=== PATIENT | male | born 1985 | race Hispanic/Latino ===

== ENCOUNTER 2017-12-15 12:24 | Emergency (ER) | payer SELFPAY ==
[2017-12-15 13:19] LABS: Absolute Lymphocytes (CBC) 2.5 K/uL (0.7-4.9); Absolute Monocytes 0.5 K/uL (0.1-1.3); Absolute Neutrophil 5.9 K/uL (1.8-8.0); Basophils % 0.4 % (0-1.3); Eosinophils % 0.7 % (0-4.4); Hematocrit 43.2 % (39.6-49.0); MCH 30.8 pg (27.0-35.0); MCV 87.9 fL (80-100); MPV 9.4 fL (7.6-11.3); RBC Red Blood Cell Count 4.91 M/uL (4.33-5.43)
[2017-12-15 13:29] LABS: Protime INR 1.01
[2017-12-15 13:44] LABS: ALT/SGPT 34 U/L (12-78); AST/SGOT 23 U/L (15-37); Albumin 4.2 g/dL (3.4-5.0); Alkaline Phosphatase 69 U/L (45-117); BUN Blood Urea Nitrogen 10 mg/dL (7-18); Bicarbonate 27 mmol/L (21-32); Bilirubin Direct 0.1 mg/dL (0-0.2); Bilirubin Total 0.5 mg/dL (0.2-1.0); Glucose Level 95 mg/dL (74-106); Magnesium 2.1 mg/dL (1.8-2.4); NT PRO-BNP 41 pg/mL (<125); Potassium 3.2 mmol/L (3.5-5.1); Sodium Level 139 mmol/L (136-145); Troponin (Emerg Dept Use Only) < 0.02 ng/mL (0.0-0.045)
--- NOTE | 2017-12-15 13:44 | RAD REPORT ---
EXAM DESCRIPTION: RAD - Chest Pa And Lat (2 Views) - 12/15/2017 1:39 pm CLINICAL HISTORY: CHEST PAIN Chest pain. COMPARISON: CHEST PA AND LAT 2 VIEW dated 05/27/2007; CHEST PA AND LAT 2 VIEW dated 01/09/2006 FINDINGS: The lungs are clear. The heart is normal in size. No displaced fractures. IMPRESSION: No acute or concerning finding suspected.
--- NOTE | 2017-12-15 14:15 | RAD REPORT ---
EXAM DESCRIPTION: CT - Chest For Pe Angio - 12/15/2017 2:05 pm CLINICAL HISTORY: Chest pain. SOB;Chest pain COMPARISON: No comparisons TECHNIQUE: CT angiogram of the pulmonary arteries was performed with MIP. All CT scans are performed using dose optimization technique as appropriate and may include automated exposure control or mA/KV adjustment according to patient size. FINDINGS: No evidence of pulmonary thromboembolism. No acute aortic finding demonstrated. The lungs are clear. No significant pericardial or pleural fluid. No concerning bony finding. IMPRESSION: No evidence of pulmonary thromboembolism. No acute lung findings.
[2017-12-15 14:56] LABS: Urine Blood NEGATIVE (NEG); Urine Glucose NEGATIVE (NEG); Urine Protein NEGATIVE (NEG); Urine pH 7.5 (5.0-7.0)
[2017-12-15 15:02] LABS: Barbiturates NEGATIVE (NEGATIVE); Benzodiazepines NEGATIVE (NEGATIVE); Cocaine POSITIVE (NEGATIVE); METHAMPHETAM NEGATIVE (NEGATIVE); Methadone NEGATIVE (NEGATIVE); Opiates NEGATIVE (NEGATIVE); Phencyclidine NEGATIVE (NEGATIVE); THC Cannibis POSITIVE (NEGATIVE)
--- NOTE | 2017-12-15 15:16 | ER ---
Nurse's Notes [facility] Name: Kev Boyd Age: 31 yrs Sex: Male : 1985 Arrival Date: 12/15/2017 Time: 12:25 Bed 17 Private MD: None, None Diagnosis: Chest Pain;Shortness of Breath Presentation: 12/15 12:35 Presenting complaint: Patient states: has had pain to neck across both shoulders, also iw had diff breathing X 6 months, symptoms worse over past week, pain described as pressure with sharp pain, worse when he's reaching for something, also has been sweating. Transition of care: patient was not received from another setting of care. Onset of symptoms was May 2017. Risk Assessment: Do you want to hurt yourself or someone else? Patient reports no desire to harm self or others. Initial Sepsis Screen: Does the patient meet any 2 criteria? No. Patient's initial sepsis screen is negative. Does the patient have a suspected source of infection? No. Patient's initial sepsis screen is negative. Care prior to arrival: None. 12:35 Method Of Arrival: Ambulatory iw 12:35 Acuity: MARY LOU 3 iw Historical: - Allergies: 12:42 PENICILLINS; iw - Home Meds: 12:42 None [Active]; iw - PMHx: 12:42 None; iw - PSHx: 12:42 None; iw - Immunization history:: Adult Immunizations not up to date. - Social history:: Smoking status: Patient uses tobacco products, smokes one pack cigarettes per day. - Ebola Screening: : Patient negative for fever greater than or equal to 101.5 degrees Fahrenheit, and additional compatible Ebola Virus Disease symptoms Patient denies exposure to infectious person Patient denies travel to an Ebola-affected area in the 21 days before illness onset No symptoms or risks identified at this time. Screenin:13 Abuse screen: Denies threats or abuse. Denies injuries from another. Nutritional hb screening: No deficits noted. Tuberculosis screening: No symptoms or risk factors identified. Fall Risk None identified. Assessment: 13:12 General: Appears in no apparent distress. Behavior is calm, cooperative. Pain: hb Complains of pain in chest Pain does not radiate. Pain currently is 8 out of 10 on a pain scale. Quality of pain is described as tightness. Neuro: Level of Consciousness is awake, alert, obeys commands, Oriented to person, place, time, situation. Cardiovascular: Heart tones S1 S2 present Capillary refill < 3 seconds Patient's skin is warm and dry. Rhythm is regular. Respiratory: Airway is patent Trachea midline Respiratory effort is even, unlabored, Respiratory pattern is regular, symmetrical, Breath sounds are clear bilaterally. GI: No signs and/or symptoms were reported involving the gastrointestinal system. : No signs and/or symptoms were reported regarding the genitourinary system. EENT: No signs and/or symptoms were reported regarding the EENT system. Derm: No signs and/or symptoms reported regarding the dermatologic system. Skin is intact, is healthy with good turgor, Skin is pink, warm \T\ dry. Musculoskeletal: No signs and/or symptoms reported regarding the musculoskeletal system. 13:55 Reassessment: Pt transported to CT via wheelchair with tech. hb 14:14 Reassessment: Pt returned from CT. hb 14:30 Reassessment: Patient appears in no apparent distress at this time. Patient and/or hb family updated on plan of care and expected duration. Pain level reassessed. Patient is alert, oriented x 3, equal unlabored respirations, skin warm/dry/pink. 15:16 Reassessment: Patient appears in no apparent distress at this time. Patient and/or hb family updated on plan of care and expected duration. Pain level reassessed. Patient is alert, oriented x 3, equal unlabored respirations, skin warm/dry/pink. Vital Signs: 12:41 BP 137 / 99; Pulse 88; Resp 20 S; Temp 98.1(O); Pulse Ox 98% on R/A; Weight 86.18 kg; iw Height 5 ft. 6 in. (167.64 cm); Pain 10/10; 12:45 BP 132 / 88; Pulse 86; Resp 15; Pulse Ox 100% on R/A; hb 13:45 BP 136 / 76; Pulse 84; Resp 15; Pulse Ox 100% on R/A; hb 15:00 BP 118 / 86; Pulse 62; Resp 14; Pulse Ox 100% on R/A; hb 12:41 Body Mass Index 30.67 (86.18 kg, 167.64 cm) iw ED Course: 12:25 Patient arrived in ED. sb2 12:26 None, None is Private Physician. sb2 12:29 Eileen, Solitario, MD is Attending Physician. wa 12:40 Triage completed. iw 12:41 Arm band placed on. iw 12:49 EKG done, by digital field service technician. reviewed by Solitario Arellano MD. at1 13:02 Patient has correct armband on for positive identification. Placed in gown. Bed in low hb position. Call light in reach. Side rails up X 1. 13:06 Inserted saline lock: 20 gauge in right antecubital area, using aseptic technique. hb Blood collected. 13:13 Kat Hummel, RN is Primary Nurse. hb 13:39 Chest Pa And Lat (2 Views) XRAY In Process Unspecified. EDMS 14:00 CT Chest For PE Angio In Process Unspecified. EDMS 14:03 CT completed. Patient tolerated procedure well. Patient moved back from CT. sj 15:15 Jb Kline MD is Referral Physician. wa 15:38 No provider procedures requiring assistance completed. IV discontinued, intact, hb bleeding controlled, No redness/swelling at site. Pressure dressing applied. Administered Medications: 15:37 Drug: Potassium Effervescent Tablet 50 mEq Route: PO; hb 15:37 Follow up: Response: Medication administered at discharge. hb Outcome: 15:16 Discharge ordered by MD. wa 15:38 Discharged to home ambulatory. hb 15:38 Condition: stable 15:38 Discharge instructions given to patient, Instructed on discharge instructions, follow up and referral plans. medication usage, Demonstrated understanding of instructions, follow-up care, medications, Prescriptions given X 1. 15:38 Patient left the ED. hb Signatures: Dispatcher [employer] Kori Fuentes Shannon Seay RN RN iw Lulú Batres, price lister EKG Tat1 Kat Hummel RN RN Solitario Arellano MD MD ma Leslie Hinds sb2 Corrections: (The following items were deleted from the chart) 12:40 12:34 Presenting complaint: iw
--- NOTE | 2017-12-15 15:17 | EDPHYS ---
Physician Documentation [facility] Name: Kev Boyd Age: 31 yrs Sex: Male : 1985 Arrival Date: 12/15/2017 Time: 12:25 Bed 17 Private MD: None, None ED Physician Solitario Arellano HPI: 12/15 13:54 This 31 yrs old Male presents to ER via Ambulatory with complaints of wa Shortness Of Breath, Chest Pain, Dizziness, Back Pain. 13:54 The patient has shortness of breath at rest, c/o SOB x 6 months. worse x 1 week. also wa with sharp pain that radiates to warren and upper back on both sides. denies cough or fever. admits to a pack a day smoking cigs. Onset: The symptoms/episode began/occurred 1 week(s) ago, worse. Duration: The symptoms are continuous, and are steadily getting worse. The patient's shortness of breath is aggravated by deep breathing, is alleviated by nothing. Associated signs and symptoms: Pertinent positives: chest pain, dizziness, Pertinent negatives: productive cough, hemoptysis, loss of consciousness, vomiting. Severity of symptoms: At their worst the symptoms were moderate in the emergency department the symptoms are worse moderately. The patient has not experienced similar symptoms in the past. The patient has not recently seen a physician. states has had intermittent issues with bronchitis since age 10. however this is worse. Historical: - Allergies: 12:42 PENICILLINS; iw - Home Meds: 12:42 None [Active]; iw - PMHx: 12:42 None; iw - PSHx: 12:42 None; iw - Immunization history:: Adult Immunizations not up to date. - Social history:: Smoking status: Patient uses tobacco products, smokes one pack cigarettes per day. - Ebola Screening: : Patient negative for fever greater than or equal to 101.5 degrees Fahrenheit, and additional compatible Ebola Virus Disease symptoms Patient denies exposure to infectious person Patient denies travel to an Ebola-affected area in the 21 days before illness onset No symptoms or risks identified at this time. ROS: 13:57 Constitutional: Negative for fever, chills, and weight loss, Eyes: Negative for injury, wa pain, redness, and discharge, ENT: Negative for injury, pain, and discharge, Neck: Negative for injury, pain, and swelling, Abdomen/GI: Negative for abdominal pain, nausea, vomiting, diarrhea, and constipation, Back: Negative for injury and pain, : Negative for injury, bleeding, discharge, and swelling, MS/Extremity: Negative for injury and deformity, Skin: Negative for injury, rash, and discoloration, Neuro: Negative for headache, weakness, numbness, tingling, and seizure, Psych: Negative for depression, anxiety, suicide ideation, homicidal ideation, and hallucinations. 13:57 Cardiovascular: Positive for chest pain, Negative for edema, orthopnea, palpitations, paroxysmal nocturnal dyspnea. 13:57 Respiratory: Positive for dyspnea on exertion, shortness of breath, on exertion. Negative for cough. Exam: 13:58 Constitutional: This is a well developed, well nourished patient who is awake, alert, wa and in no acute distress. Head/Face: Normocephalic, atraumatic. Eyes: Pupils equal round and reactive to light, extra-ocular motions intact. Lids and lashes normal. Conjunctiva and sclera are non-icteric and not injected. Cornea within normal limits. Periorbital areas with no swelling, redness, or edema. ENT: Nares patent. No nasal discharge, no septal abnormalities noted. Tympanic membranes are normal and external auditory canals are clear. Oropharynx with no redness, swelling, or masses, exudates, or evidence of obstruction, uvula midline. Mucous membranes moist. Neck: Trachea midline, no thyromegaly or masses palpated, and no cervical lymphadenopathy. Supple, full range of motion without nuchal rigidity, or vertebral point tenderness. No Meningismus. Chest/axilla: Normal chest wall appearance and motion. Nontender with no deformity. No lesions are appreciated. Cardiovascular: Regular rate and rhythm with a normal S1 and S2. No gallops, murmurs, or rubs. Normal PMI, no JVD. No pulse deficits. Abdomen/GI: Soft, non-tender, with normal bowel sounds. No distension or tympany. No guarding or rebound. No evidence of tenderness throughout. Back: No spinal tenderness. No costovertebral tenderness. Full range of motion. Skin: Warm, dry with normal turgor. Normal color with no rashes, no lesions, and no evidence of cellulitis. MS/ Extremity: Pulses equal, no cyanosis. Neurovascular intact. Full, normal range of motion. Neuro: Awake and alert, GCS 15, oriented to person, place, time, and situation. Cranial nerves II-XII grossly intact. Motor strength 5/5 in all extremities. Sensory grossly intact. Cerebellar exam normal. Normal gait. Psych: Awake, alert, with orientation to person, place and time. Behavior, mood, and affect are within normal limits. 13:58 Respiratory: the patient does not display signs of respiratory distress, Respirations: normal, Breath sounds: are clear throughout, Respiratory rate: normal Vital Signs: 12:41 BP 137 / 99; Pulse 88; Resp 20 S; Temp 98.1(O); Pulse Ox 98% on R/A; Weight 86.18 kg; iw Height 5 ft. 6 in. (167.64 cm); Pain 10/10; 12:45 BP 132 / 88; Pulse 86; Resp 15; Pulse Ox 100% on R/A; hb 13:45 BP 136 / 76; Pulse 84; Resp 15; Pulse Ox 100% on R/A; hb 15:00 BP 118 / 86; Pulse 62; Resp 14; Pulse Ox 100% on R/A; hb 12:41 Body Mass Index 30.67 (86.18 kg, 167.64 cm) iw MDM: 12:29 Patient medically screened. ok 13:58 Differential diagnosis: Bronchitis CHF exacerbation, pneumonia, pulmonary edema, wa Pulmonary Embolism Unstable Angina. 13:59 Data reviewed: vital signs, nurses notes, lab test result(s), EKG. Test interpretation: ok by ED physician or midlevel provider: EKG: HR 94. sinus arrhythmia. nml EKG. 15:14 Test interpretation: by ED physician or midlevel provider: labs noted for low K. UDS ok noted positive for cocaine and THC. . Response to treatment: the patient's symptoms have markedly improved after treatment. ED course: advised to quit cocaine use. will have f/u with pulm. . 15:19 Test interpretation: by ED physician or midlevel provider: drug screen positive for ok cocaine and THC. 12/15 12:54 Order name: Basic Metabolic Panel; Complete Time: 14:27 ok 12/15 12:54 Order name: CBC with Diff; Complete Time: 14:27 12/15 12:54 Order name: LFT's; Complete Time: 14:27 12/15 12:54 Order name: Magnesium; Complete Time: 14:27 ok 12/15 12:54 Order name: NT PRO-BNP; Complete Time: 14:27 ok 12/15 12:54 Order name: PT-INR; Complete Time: 14:27 ok 12/15 12:54 Order name: Troponin (emerg Dept Use Only); Complete Time: 14:27 12/15 12:54 Order name: EKG; Complete Time: 12:55 ok 12/15 12:54 Order name: Cardiac monitoring; Complete Time: 13:36 ok 12/15 12:54 Order name: Chest Pa And Lat (2 Views) XRAY; Complete Time: 14:27 12/15 12:55 Order name: UDS; Complete Time: 15:13 ok 12/15 12:55 Order name: CT Chest For PE Angio; Complete Time: 14:27 12/15 14:30 Order name: Urine Dipstick--Ancillary (enter results) 12/15 12:54 Order name: EKG - Nurse/Tech; Complete Time: 13:36 ok 12/15 12:54 Order name: IV Saline Lock; Complete Time: 13:37 ok 12/15 12:54 Order name: Labs collected and sent; Complete Time: 13:37 ok 12/15 12:54 Order name: O2 Per Protocol; Complete Time: 13:37 ok 12/15 12:54 Order name: O2 Sat Monitoring; Complete Time: 13:37 ok 12/15 12:54 Order name: Urine Dipstick-Ancillary (obtain specimen); Complete Time: 15:02 ok Administered Medications: 15:37 Drug: Potassium Effervescent Tablet 50 mEq Route: PO; hb 15:37 Follow up: Response: Medication administered at discharge. hb Disposition: 12/15/17 15:16 Discharged to Home. Impression: Chest Pain, Shortness of Breath. - Condition is Stable. - Prescriptions for Albuterol Sulfate 90 mcg/actuation - inhale 1-2 puff by INHALATION route every 4-6 hours; 1 Inhaler. - Medication Reconciliation Form, Thank You Letter, Antibiotic Education, Prescription Opioid Use form. - Follow up: Jb Kline MD; When: 2 - 3 days; Reason: Re-evaluation by your physician. - Problem is new. - Symptoms have improved. - Notes: do not use cocaine. cocaine use could be the reason for your symptoms. see the lung doctor for further evaluation. return to ER immediately for rapid worsening concerns Signatures: Dispatcher [employer] Shannon Borden RN RN Kat Hummel RN RN Solitario Arellano MD MD wa Corrections: (The following items were deleted from the chart) 15:38 15:16 12/15/2017 15:16 Discharged to Home. Impression: Chest Pain; Shortness of Breath. hb Condition is Stable. Forms are Medication Reconciliation Form, Thank You Letter, Antibiotic Education, Prescription Opioid Use. Follow up: Jb Kline; When: 2 - 3 days; Reason: Re-evaluation by your physician. Problem is new. Symptoms have improved. milana
[2017-12-15] MEDS ORDERED: POTASSIUM 25 MEQ EFFERV TAB ONE (15:37)
--- NOTE | 2017-12-15 19:25 | EKG ---
Test Date: 2017-12-15 Test Time: 12:41:10 Claim Administrator: STEPHEN MEASUREMENT RESULTS: Intervals: Rate: 94 MS: 146 QRSD: 88 QT: 356 QTc: 445 [place]: P: 51 MS: 146 QRS: 37 T: 19 INTERPRETIVE STATEMENTS: Normal sinus rhythm with sinus arrhythmia Normal ECG No previous ECG available for comparison Electronically Signed On 12-15-17 19:22:50 CDT by Isaak Boyce
== END 2017-12-15 15:38 | disposition home or self-care (01) ==
LOC: ER 12:24
DX: R07.9 Chest pain, unspecified (principal); F17.210 Nicotine dependence, cigarettes, uncomplicated; Z88.0 Allergy status to penicillin
CPT/HCPCS: 36415; 71046; 71275; 80048; 80076; 80307; 81003; 83735; 83880; 84484; 85025; 85610; 93005; 99284; Q9967